=== PATIENT | female | born 1965 | race Hispanic/Latino ===

== ENCOUNTER 2024-12-11 18:11 | Emergency (ER) | payer OTHER ==
[~2024-12-11] VITALS: Ht 157.5 cm; Wt 95.3 kg
[2024-12-11 18:29] VITALS: PULSE 86; RESP 16; TEMP 97.3; O2SAT 98
== END 2024-12-11 18:55 | disposition home or self-care (01) ==
LOC: ER 18:55
DX: M25.561 Pain in right knee (principal); E11.9 Type 2 diabetes mellitus without complications; E78.5 Hyperlipidemia, unspecified; E03.9 Hypothyroidism, unspecified; J45.909 Unspecified asthma, uncomplicated
CPT/HCPCS: 99283